=== PATIENT | male | born 1995 | race Caucasian/White ===

== ENCOUNTER 2019-04-10 14:48 | Emergency (ER) | payer SELFPAY ==
[2019-04-10 14:56] VITALS: BP 145/96
--- NOTE | 2019-04-10 15:03 | ER Document Report ---
HPI - HPI Patient complains to provider of: sore throat Time Seen by Provider: 04/10/19 15:02 Onset: Just prior to arrival Onset/Duration: Gradual Quality of pain: Achy Severity: Moderate Pain Level: 3 Context: 24 yr old male pt, with the listed pmh, here presenting with sore throat for the last few days. states pain is worst on the left side. denies dental complaints. patient states the pain is an 7/10 sharp achiness that increases with swallowing and decreases with rest. Patient states no acute respiratory distress. Patient states no difficulty swallowing or handling secretions ; however it does hurt. Patient denies any ear pain, cp, sob, vomiting, diarrhea, abd pain, vision changes, dizziness, rash, or headache. Patient states nothing is making the symptoms better and is here in the emergency department for symptom control. Patient denies any other complaints at this time. no recent antibiotics or steroids. no hx of diabetes or uncontrolled asthma. utd on shots. Similar symptoms previously: Yes Recently seen / treated by doctor: No - ROS Systems Reviewed and Negative: Yes All other systems reviewed and negative - to include 10 systems. unless mentioned in the hpi Past Medical History - General Information source: Patient - Social History Smoking Status: Never Smoker Frequency of alcohol use: None Drug Abuse: None Lives with: Family Family History: CAD Patient has suicidal ideation: No Patient has homicidal ideation: No - Medical History Medical History: Negative Pulmonary Medical History: Denies: Hx Asthma - Immunizations Immunizations up to date: Yes Hx Diphtheria, Pertussis, Tetanus Vaccination: Yes Vertical Provider Document - CONSTITUTIONAL Agree With Documented VS: Yes Exam Limitations: No Limitations General Appearance: WD/WN Notes: Vital signs: All vital signs were reviewed per nursing notes. Gen. appearance: Nontoxic, patient of stated age, sitting comfortably in the bed. pleasant, young male, appears to have some discomfort with swallowing, smiling, speaking in full sentences, in no sign of resp distress, appears uncomfortable but not toxic Psychiatric: Alert, pleasant and very conversational, normal affect. Skin: Warm, pink, dry, normal turgor, no rashes. ENT: Normocephalic, atraumatic, pupils are equal and reactive to light, extraocular muscles intact, tympanic membranes normal, mucosal membranes moist, pink conjunctiva, there is moderate pharyngeal erythema and tonsilar exudate with hypertrophy bilaterally-L>R concerning for developing left peritonsilar abs cess. nothing drainable at this time. The uvula is midline but does appear to have a slight deviation when saying "ahh". There is no submandibular harness. There is no trismus. There is no tenderness over the sternocleidomastoid or thyroid cartilage. no drooling, tripoding, or hot potato voice. he does smell of strep halitosis Neck: Supple, no tenderness, mild bilat ant cerv lymphadenopathy-L>R. CV: Regular rate and rhythm, Lungs: Clear to auscultation bilaterally, no wheezes, symmetrical chest rise. Abdomen: Soft, nontender, nondistended, good bowel sounds, no rebound, rigidity, guarding, peritoneal signs or organomegally. No CVA tenderness bilaterally. This is a nonacute abdomen. No tenderness over McBurney's point. Back: no tenderness Extremities: Full rom, full strength, good pulses, normal gait, no swelling or ttp of extremities. good hand binding cutter. brisk cap refill. Neuro: Cranial nerves II through XII intact, normal speech, cerebellar fxn intact, motor and sensation intact - INFECTION CONTROL TRAVEL OUTSIDE OF THE [place] IN LAST 30 DAYS: No Course - Re-evaluation Re-evalutation: pt here for likely early developing left peritonsilar abscess, he responded well to tx listed. tolerating po and his secretions normally. speaking in full sentences. pain controlled. appears clinically hydrated. rapid strep was neg. throat cx pending. advised will call with any results that require change in plan of care. he has no grossly palpable splenomegaly. given his exam and hx will go ahead and tx for presumed early left peritonsilar abscess. nothing drainable at this time. will dc with Augmentin and viscous lidocaine. he responded well to decadron and viscous lidocaine here. salt water gargles. advised sx care. otc meds for pain. change tooth brush. advised to f/u with pcp in 1-2 days. return for any worsening symptoms. vss. well appearing. satting well on ra. neurononfocal. pt understands and agrees to plan. no sign of ludwigs, parotitis, mastoiditis, dental abscess, or epiglottis. On reexam, pt improved with tx listed. remained stable. nontoxic. well a ppearing. pain controlled. tolerating po. requesting to go home. Documentation achieved through voice recording which may lead to some occasional accidental typographical errors. Extensive efforts have been made to proof read documentation to make sure these are the least as possible. Category Date Time Status Rapid Strep [DIRECT STREP,RAPID] [MO] Stat Lab 04/10/19 14:58 Completed THROAT CULTURE [[facility]] Routine Lab 04/10/19 14:58 Completed Dexamethasone Sod Phosphate [Decadron Inj 10 mg/1 ml Med 04/10/19 16:28 Discontinued Vial] 10 mg IV NOW ONE Lidocaine HCl [Xylocaine 2% Viscous Soln 20 ml Udcup] Med 04/10/19 16:29 Discontinued 15 ml PO NOW ONE - Vital Signs Vital signs: Temp Pulse Resp BP Pulse Ox 99.5 F 86 16 145/96 H 97 04/10/19 14:53 04/10/19 14:53 04/10/19 14:53 04/10/19 14:53 04/10/19 14:53 Temp Pulse Resp BP Pulse Ox 04/10/19 14:53 99.5 F 86 16 145/96 H 97 - Laboratory Laboratory results interpreted by me: Labs- Entire Visit 04/10/19 14:58 Group A Strep Rapid NEGATIVE Discharge - Discharge Clinical Impression: Peritonsillar abscess Pharyngitis Qualifiers: Pharyngitis/tonsillitis etiology: unspecified etiology Qualified Code(s): J02.9 - Acute pharyngitis, unspecified Acute tonsillitis Qualifiers: Pharyngitis/tonsillitis etiology: unspecified etiology Qualified Code(s): J03.90 - Acute tonsillitis, unspecified Condition: Good Disposition: HOME, SELF-CARE Instructions: Martina-Tonsillar Abscess ([facility]) Additional Instructions: Follow-up with PCP in 1 to 2 days. Return for any worsening symptoms. tylenol or motrin as needed for any pain or fever if not allergic. take the medication as prescribed. Drink plenty of fluids. Salt water gargles. Change your toothbrush. We will call you with any abnormal results that require change in plan of care. Have a low threshold for any worsening symptoms and return to the ER. Take the antibiotics to completion. Prescriptions: Amox Tr/Potassium Clavulanate [Augmentin 875-125 Tablet] 1 tab PO BID 10 Days #20 tablet Lidocaine HCl [Xylocaine 2% Viscous Soln 20 ml Udcup] 15 ml PO QID PRN #200 ml PRN Reason: For Breakthrough Pain Referrals: MANA WANG MD [EMER[facility]] - Follow up tomorrow
[2019-04-10] MEDS ORDERED: DEXAMETHASONE SOD PHOS INJ 10 MG/1 ML VIAL IV ONE (16:28)
[2019-04-10] MEDS ORDERED: LIDOCAINE 2% VISCOUS SOLN 20 ML UDCUP PO ONE (16:29)
== END 2019-04-10 16:44 | disposition home or self-care (01) ==
LOC: ER 14:48
DX: J36 Peritonsillar abscess (principal); R13.10 Dysphagia, unspecified
CPT/HCPCS: 99283; 96374; 87070; 87880; J3490; J1100